=== PATIENT | male | born 1965 | race Caucasian/White ===

== ENCOUNTER 2018-11-30 14:44 | Emergency (ER) | payer OTHER, BC ==
[2018-11-30] MEDS ORDERED: LIDOCAINE 4% TRANSPARENT DRESSING 5 GM KIT TP ONE (15:15)
--- NOTE | 2018-11-30 15:16 | ER Document Report ---
HPI - HPI Patient complains to provider of: head injury Time Seen by Provider: 11/30/18 15:10 Onset: Just prior to arrival Onset/Duration: Sudden Quality of pain: Achy Pain Level: 3 Context: Pt states that he was walking underneath a plane and stood up hitting his head on the wing. Patient with laceration to apex of scalp. Patient denies any loss of consciousness nausea or vomiting. Associated Symptoms: Headache. denies: Nausea, Vomiting Exacerbated by: Denies Relieved by: Denies Similar symptoms previously: No Recently seen / treated by doctor: No - ROS ROS below otherwise negative: Yes Systems Reviewed and Negative: Yes All other systems reviewed and negative - CONSTITUTIONAL Constitutional: DENIES: Fever - NEURO Neurology: REPORTS: Headache. DENIES: Vision blurred, Dizzinesss / Vertigo - GASTROINTESTINAL Gastrointestinal: DENIES: Nausea, Patient vomiting - MUSCULOSKELETAL Musculoskeletal: DENIES: Back Pain, Neck Pain - DERM Skin Color: Normal Skin Problems: Laceration Past Medical History - General Information source: Patient - Social History Smoking Status: Never Smoker Frequency of alcohol use: Occasional Drug Abuse: None Occupation: [employer] Lives with: Family Family History: Reviewed & Not Pertinent - Medical History Medical History: Negative Surgical Hx: Negative - Immunizations Hx Diphtheria, Pertussis, Tetanus Vaccination: No Vertical Provider Document - CONSTITUTIONAL Agree With Documented VS: Yes Exam Limitations: No Limitations General Appearance: WD/WN, No Apparent Distress - INFECTION CONTROL TRAVEL OUTSIDE OF THE [place] IN LAST 30 DAYS: No - HEENT HEENT: Normal ENT Exam, Normocephalic, PERRLA Notes: scalp lac - NECK Neck: Normal Inspection, Supple - RESPIRATORY Respiratory: No Respiratory Distress - BACK Back: Normal Inspection - MUSCULOSKELETAL/EXTREMETIES Musculoskeletal/Extremeties: MAEW, FROM - NEURO Level of Consciousness: Awake, Alert, Appropriate Motor/Sensory: No Motor Deficit, No Sensory Deficit - DERM Integumentary: Warm, Dry, Laceration - 4.5 cm lac to apex of scalp Course - Vital Signs Vital signs: Temp Pulse Resp BP Pulse Ox 97.8 F 58 L 16 134/86 H 100 11/30/18 14:56 11/30/18 14:56 11/30/18 14:56 11/30/18 14:56 11/30/18 14:56 Procedures - Laceration/Wound Repair Head Wound length (cm): 4.5 Wound's Depth, Shape: Linear Laceration pre-procedure: Shur-Clens applied Anesthetic type: Other - lmx Wound explored: Clean Wound Repaired With: Naeem Number of Sutures: 5 Post-procedure NV exam normal: Yes Complications: No Adult Head Front/Back picture: 1 - 4.5 cm lac Discharge - Discharge Clinical Impression: Scalp laceration Qualifiers: Encounter type: initial encounter Qualified Code(s): S01.01XA - Laceration without foreign body of scalp, initial encounter Head injury Qualifiers: Encounter type: initial encounter Qualified Code(s): S09.90XA - Unspecified injury of head, initial encounter Condition: Stable Disposition: HOME, SELF-CARE Instructions: Head Injury Precautions (OM), Laceration Care (OM), Tetanus Immunization Given (OM) Additional Instructions: Return immediately for any new or worsening symptoms Followup with your primary care provider, call tomorrow to make a followup appointment Staple removal in 7 days Forms: Return to Work
[2018-11-30] MEDS ORDERED: DIPH/PERTUSS(ACELL)/TETANUS VAC/PF 0.5 ML SYR (>=10YO) IM ONE (16:12)
[2018-11-30] MEDS ORDERED: ACETAMINOPHEN 325 MG TABLET PO ONE (16:23)
[2018-11-30 16:48] VITALS: BP 142/84
== END 2018-11-30 16:47 | disposition home or self-care (01) ==
LOC: ER 14:44
DX: R51 Headache (principal); S01.01XA Laceration without foreign body of scalp, initial encounter; W22.8XXA Striking against or struck by other objects, initial encounter
CPT/HCPCS: 99282; 90471; 90715; 12002; J3490